=== PATIENT | male | born 2000 | race Caucasian/White ===

== ENCOUNTER → 2021-09-13 14:37 | Outpatient (BNVA) | payer OTHER, SELFPAY | PROVIDERS: PCP Nurse Practitioner; Visit Provider Nurse Practitioner | DX: S99.911A Unspecified injury of right ankle, initial encounter (principal); X58.XXXA Exposure to other specified factors, initial encounter; R60.0 Localized edema | CPT/HCPCS: 73610 ==

== ENCOUNTER 2024-04-29 14:17 | Emergency (ER) | payer OTHER, SELFPAY ==
[2024-04-29 14:22] VITALS: BP 163/107; PULSE 76; RESP 18; TEMP 36.4; O2SAT 96; BMI 42.4
--- NOTE | 2024-04-29 14:34 | ED_ITS ---
HPI - Abdominal Pain 2 General: Chief Complaint: Abdominal Pain Stated Complaint: abdominal pain, back pain, vomitting Time Seen by Provider: 04/29/24 14:18 Source: patient Mode of arrival: ambulatory Limitations: no limitations History of Present Illness: Patient is a 23-year-old male presents to ED today with complaint of upper abdominal pain. Patient states over the past several days his upper abdomen has felt sore and described it as a hunger pain . He states yesterday evening around 8 PM it began feeling significantly uncomfortable and radiating to his back. He states pain was worsened with eating yesterday evening and eating again this morning. Starting yesterday evening he has had some nonbloody/nonbilious emesis. He has not noted any changes in his bowel movements or passage of flatulence. He has no urinary complaints. No fevers, chills, body aches. MD elicited complaint: abdominal pain Onset (ago): day(s) Pain Consistency: intermittent Location: Epigastric and LUQ Severity: moderate Radiation: back Exacerbating factors: eating Relieving factors: nothing Associated Symptoms: Reports nausea and vomiting; Denies change in bowel habits, chills, constipation, diarrhea, dysuria, fever(s), hematochezia and melena Related Data Previous Rx's Medication Instructions Recorded diphenhydramine HCl 2 % topical 1 applic topical TID #103 mL 05/13/20 gel (Benadryl) epinephrine 0.3 mg/0.3 mL 0.3 mg (0.3 mL) IM Q10M PRN 05/13/20 injection, auto-injector (EpiPen anaphylaxis #2 ea 2-Jeffrey) loratadine 10 mg tablet 10 mg PO .BID 30 days #60 tabs 05/13/20 ondansetron HCl 4 mg tablet 4 mg PO Q8H #30 tabs 04/29/24 Allergies Allergy/AdvReac Type Severity Reaction Status Date / Time No Known Allergies Allergy Unverified 09/13/21 14:27 Review of Systems 2 Const: Denies: fever(s), chills, body aches, fatigue or malaise Card: Denies: chest pain Resp: Denies: dyspnea GI: Reports: abdominal pain, nausea and vomiting; Denies: diarrhea, constipation, change in bowel habits, hematochezia or melena : Denies: flank pain, difficulty urinating, dysuria, urinary frequency, urinary urgency or urinary hesitancy Musc: Reports: back pain; Denies: neck pain, extremity pain, extremity swelling, joint pain or joint swelling Skin/Breast: Denies: rash Neuro: Denies: headache(s), numbness in extremities, weakness in extremities, sensory changes or dizziness PFSH ED 2 PFSH: Medical History Allergy to food Social History Smoking and tobacco/nicotine status: current every day tobacco/nicotine user Physical Exam 2 Const: COMMON NORMALS: no acute distress, patient oriented x3, no limitations, alert and well nourished GENERAL APPEARANCE: cooperative NUTRITIONAL APPEARANCE: obese morbidly obese (BMI 42.4) ORIENTATION/CONSCIOUSNESS: Yes awake, Yes oriented to person, Yes oriented to place and Yes oriented to time Eye: COMMON NORMALS: no scleral icterus Chest: COMMONS NORMALS: normal inspection of the chest and normal palpation of entire chest wall Resp: COMMON NORMALS: normal respiratory effort and clear to auscultation bilaterally AUSCULTATION: clear to auscultation bilaterally Cardio: COMMON NORMALS: regular rate and regular rhythm RATE: regular rate RHYTHM: regular rhythm GI: COMMON NORMALS: Normal to inspection, nondistended, normoactive bowel sounds present, Soft to palpation, No hepatosplenomegaly present and no masses INSPECTION: Yes normal to inspection AUSCULTATION: Yes normoactive bowel sounds PALPATION: Yes Soft to palpation, Yes Tenderness to palpation present (GI) (epigastric/LUQ), No Guarding due to palpation present (GI), No Rigid due to palpation and Yes No hepatosplenomegaly present : COMMON NORMALS: Yes no CVA tenderness BLADDER/KIDNEY EXAM: Yes no CVA tenderness Back/Pelvis: COMMON NORMALS: no CVA tenderness and thoracic and lumbar spine normal to inspection Extremity: GENERAL: Yes normal exam except as noted Neuro: LAURA COMA SCALE: document GCS findings Laura coma scale eye opening: Spontaneous [place] coma scale verbal response: Orientated Laura coma scale motor response: Obey commands [place] coma scale total score: 15 COMMON NORMALS: patient oriented x3, moves all extremities, no focal motor deficits and no sensory deficits noted SENSORIUM/ORIENTATION: Yes alert, Yes oriented to person, Yes oriented to place and Yes oriented to time Skin: COMMON NORMALS: no rashes or lesions noted GENERAL SKIN EXAM: no rashes or lesions noted Course 2 Vital Signs: Vital signs: Vital Signs Temperature 97.6 F 04/29/24 14:22 Pulse Rate 75 04/29/24 17:30 Respiratory Rate 18 04/29/24 14:22 Blood Pressure 149/96 04/29/24 17:30 Pulse Oximetry 95 04/29/24 17:30 Oxygen Delivery Me thod Room Air 04/29/24 16:53 MDM - Abdominal Pain Medical Decision Making Patient is a 23-year-old male here for upper abdominal pain. He appears in no acute distress. His vital signs are stable. Blood work overall is unremarkable. CT scan showing possibly enteritis. Patient will be treated conservatively. Return ED precautions given. Will have him follow-up with primary care later this week if symptoms persist. Lab Data 04/29/24 14:54 04/29/24 14:54 Labs/Radiology: Radiology Impressions Abdomen/Pelvis CT 04/29/24 15:48 IMPRESSION: 1. Mildly prominent small bowel loops in the left upper quadrant with air-fluid levels, possibly representing enteritis. No evidence of bowel obstruction. 2. Mural prominence along the transverse colon is likely accentuated by underdistention. No pericolonic fat stranding to suggest inflammation. 3. Trace free pelvic fluid. 4. Ongoing mild splenomegaly. Laboratory Results WBC 11.12 10^3/uL (3.29-11.43) 04/29/24 14:54 RBC 5.60 10^6/uL (3.85-5.65) 04/29/24 14:54 Hgb 17.20 g/dL (11.27-16.99) H 04/29/24 14:54 Hct 49.2 % (37-53) 04/29/24 14:54 MCV 87.9 fl (82-101) 04/29/24 14:54 MCH 30.7 pg (27-33) 04/29/24 14:54 MCHC 35.0 g/dL (30-55) 04/29/24 14:54 RDW 12.1 % (12.1-15.1) 04/29/24 14:54 Plt Count 228 10^3/cmm (157-399) 04/29/24 14:54 MPV 10.8 fL (7.4-10.4) H 04/29/24 14:54 Neut % (Auto) 74.5 % 04/29/24 14:54 Lymph % (Auto) 14.9 % 04/29/24 14:54 Saunders % (Auto) 6.9 % 04/29/24 14:54 Eos % (Auto) 3.1 % 04/29/24 14:54 Baso % (Auto) 0.2 % 04/29/24 14:54 Neut # (Auto) 8.29 10^3/uL (1.8-7.7) H 04/29/24 14:54 Lymph # (Auto) 1.7 10^3/uL (0.8-4.8) 04/29/24 14:54 Saunders # (Auto) 0.8 10^3/uL (0.2-0.9) 04/29/24 14:54 Eos # (Auto) 0.3 10^3/uL (0.0-0.8) 04/29/24 14:54 Baso # (Auto) 0.0 10^3/uL (0.0-0.1) 04/29/24 14:54 Nucleated RBC % (auto) 0 % 04/29/24 14:54 Nucleated RBCs # 0.0 /100WBC 04/29/24 14:54 Sodium 141 mmol/L (136-145) 04/29/24 14:54 Potassium 4.0 mmol/L (3.5-5.1) 04/29/24 14:54 Chloride 105 mmol/L (98-107) 04/29/24 14:54 Carbon Dioxide 25 mmol/L (22-29) 04/29/24 14:54 Anion Gap 15.0 (5-19) 04/29/24 14:54 BUN 10 mg/dL (6-20) 04/29/24 14:54 Creatinine 0.6 mg/dL (0.7-1.2) L 04/29/24 14:54 GFR Calculation 168.5 mL/min (90-130) H 04/29/24 14:54 Glucose 98 mg/dL (65-115) 04/29/24 14:54 Calculated Osmolality 291 mOsm/kg (285-295) 04/29/24 14:54 Calcium 9.2 mg/dL (8.5-10.5) 04/29/24 14:54 Total Bilirubin 0.6 mg/dL (0.15-1.2) 04/29/24 14:54 AST 17 U/L (0-40) 04/29/24 14:54 ALT 43 U/L (0-41) H 04/29/24 14:54 Alkaline Phosphatase 60 U/L (40-130) 04/29/24 14:54 Total Protein 7.3 g/dL (6.6-8.7) 04/29/24 14:54 Albumin 4.4 g/dL (3.5-5.2) 04/29/24 14:54 Globulin 2.9 g/dL (1.3-4.6) 04/29/24 14:54 Lipase 25 U/L (13-60) 04/29/24 14:54 Urine Color Yellow (Yellow) 04/29/24 15:10 Urine Appearance Slightly cloudy (CLEAR) 04/29/24 15:10 Urine pH 8 (5-7) A 04/29/24 15:10 Ur Specific [place] 1.010 (1.005-1.030) 04/29/24 15:10 Urine Protein Neg (Negative) 04/29/24 15:10 Urine Glucose (UA) Norm (Normal) 04/29/24 15:10 Urine Ketones Negative (Negative) 04/29/24 15:10 Urine Blood Neg (Negative) 04/29/24 15:10 Urine Nitrate Negative (Negative) 04/29/24 15:10 Urine Bilirubin Neg (Negative) 04/29/24 15:10 Urine Urobilinogen Norm mg/dL (Negative) 04/29/24 15:10 Ur Leukocyte Esterase Trace (Negative) H 04/29/24 15:10 Urine RBC 0-4 /hpf (0-2) H 04/29/24 15:10 Urine WBC 15-25 /hpf (0-5) H 04/29/24 15:10 Ur Squamous Epith Cells 10-15 /hpf (0-5) H 04/29/24 15:10 Amorphous Sediment Not Reportable 04/29/24 15:10 Urine Bacteria Trace /hpf (NONE) 04/29/24 15:10 Urine Mucus 3+ /hpf 04/29/24 15:10 All radiology interpretation(s) finalized by discharge Discharge Plan Discharge Patient Disposition: Home Clinical Impression: Enteritis Condition: Stable Prescriptions: New ondansetron HCl 4 mg tablet 4 mg PO Q8H Qty: 30 0RF No Action epinephrine [EpiPen 2-Jeffrey] 0.3 mg/0.3 mL auto-injector 0.3 mg IM Q10M PRN (Reason: anaphylaxis) Qty: 2 2RF Rx Instructions: for 2 doses loratadine 10 mg tablet 10 mg PO .BID 30 Days Qty: 60 2RF Benadryl 2 % gel 1 applic TOPICAL TID Qty: 103 2RF Discharge Orders: Discharge ED (Routine); Ordered 04/29/24 Ordered By: Any Herrera Referrals: Wendy Marti FNP [Primary Care Provider] - Gus Tabor MD [Family Provider] - Patient Instructions: Enteritis (ED) Activity Restrictions/Additional Instructions: As we discussed, I would like you to do a bland liquid diet and slowly advance to soft foods and then from there as tolerated. Please follow-up with primary care return to the emergency department for worsening abdominal pain, better episodes of vomiting, blood in your vomit or stool, fevers, generally feeling worse or unwell, or any other concerns you may have. Coding Level of Care Code ED [employer] Grip for Jordan Montalvo
[2024-04-29 15:02] LABS: Basophils % 0.2 %; Eosinophils # 0.3 10^3/uL (0.0-0.8); Eosinophils % 3.1 %; Hematocrit 49.2 % (37-53); Lymphocytes # 1.7 10^3/uL (0.8-4.8); Lymphocytes % 14.9 %; Mean Corpuscular Hemoglobin 30.7 pg (27-33); Mean Corpuscular Volume 87.9 fl (82-101); Mean Platelet Volume 10.8 fL (7.4-10.4); Monocytes # 0.8 10^3/uL (0.2-0.9); Monocytes % 6.9 %; Neutrophils # 8.29 10^3/uL (1.8-7.7); Neutrophils % 74.5 %; Nucleated Red Blood Cells % 0 %; Platelet Count 228 10^3/cmm (157-399); Red Cell Distribution Width 12.1 % (12.1-15.1); White Blood Count 11.12 10^3/uL (3.29-11.43)
[2024-04-29] MEDS: lidocaine 2% viscous 15 ML, aluminum-mag hydrox-simethicon 30 ML, sucralfate oral liq 1 GM PO (15:05)
[2024-04-29 15:06] VITALS: BP 148/69; O2SAT 98
[2024-04-29 15:19] LABS: Alanine Aminotransferase 43 U/L (0-41); Albumin Level 4.4 g/dL (3.5-5.2); Alkaline Phosphatase 60 U/L (40-130); Aspartate Amino Transferase 17 U/L (0-40); Blood Urea Nitrogen 10 mg/dL (6-20); Calcium 9.2 mg/dL (8.5-10.5); Carbon Dioxide 25 mmol/L (22-29); Chloride 105 mmol/L (98-107); Creatinine Clr Calc Pharmacy 274.0681; Globulin 2.9 g/dL (1.3-4.6); Glomerular Filtration Rate 168.5 mL/min (90-130); Glucose 98 mg/dL (65-115); Lipase 25 U/L (13-60); Osmolality Calculated 291 mOsm/kg (285-295); Sodium 141 mmol/L (136-145); Total Bilirubin 0.6 mg/dL (0.15-1.2); Total Protein 7.3 g/dL (6.6-8.7)
[2024-04-29 15:33] LABS: Add Urine Microscopic? YES; Bilirubin Urine Neg (Negative); Blood Urine Neg (Negative); Glucose Urine UA Norm (Normal); Ketones Urine Negative (Negative); Leukocyte Esterase Urine Trace (Negative); Nitrate Urine Negative (Negative); Protein Urine Neg (Negative); RBC Urine 0-4 /hpf (0-2); Urine Appearance Slightly Cloudy (CLEAR); Urine Color Yellow (Yellow); Urobilinogen Urine Norm (Negative); pH Urine 8 (5-7)
[2024-04-29 15:34] LABS: Bacteria Urine TRACE /hpf; Mucus Urine 3+ /hpf; WBC Urine 15-25 /hpf (0-5)
--- NOTE | 2024-04-29 15:38 | PC.NURSE ---
oral challenge, sprite and crackers given.
--- NOTE | 2024-04-29 15:48 | CTR_ITS ---
PROCEDURE INFORMATION: Exam: CT Abdomen And Pelvis With Contrast Exam date and time: 04/29/2024 4:26 PM Age: 23 years old Clinical indication: Nausea and vomiting; Additional info: Upper abdominal pain TECHNIQUE: Imaging protocol: Computed tomography of the abdomen and pelvis with contrast. Radiation optimization: All CT scans at this facility use at least one of these dose optimization techniques: automated exposure control; mA and/or kV adjustment per patient size (includes targeted exams where dose is matched to clinical indication); or iterative reconstruction. Contrast material: OMNI 350; Contrast volume: 100 ml; Contrast route: INTRAVENOUS (IV); COMPARISON: CT abdomen pelvis w con* [id number] 09/16/2017 12:13 AM RADIATION DOSE METRICS: Total DLP (mGy-cm): 1341 FINDINGS: Liver: Normal. No mass. Gallbladder and biliary ducts: Normal. No calcified stones. No ductal dilation. Pancreas: Normal. No ductal dilation. Spleen: Spleen is mildly enlarged. Adrenal glands: Normal. No mass. Kidneys and ureters: Normal. No hydronephrosis. Stomach and bowel: Mild mural thickening of the transverse colon is likely exaggerated by underdistention. No pericolonic fat stranding. A few mildly prominent small bowel loops are seen in the left upper quadrant with air-fluid levels. No evidence of bowel obstruction. Appendix: No evidence of appendicitis. Intraperitoneal space: Trace free fluid in the pelvis. Vasculature: Unremarkable. No abdominal aortic aneurysm. Lymph nodes: Unremarkable. No enlarged lymph nodes. Urinary bladder: Unremarkable as visualized. Reproductive: Unremarkable as visualized. Bones/joints: Unremarkable. No acute fracture. Soft tissues: Unremarkable. CT/CT abdomen pelvis w con* [id number] IMPRESSION: 1. Mildly prominent small bowel loops in the left upper quadrant with air-fluid levels, possibly representing enteritis. No evidence of bowel obstruction. 2. Mural prominence along the transverse colon is likely accentuated by underdistention. No pericolonic fat stranding to suggest inflammation. 3. Trace free pelvic fluid. 4. Ongoing mild splenomegaly.
[2024-04-29 16:00] VITALS: BP 147/88; PULSE 80; O2SAT 96
[2024-04-29] MEDS: iohexol 350 mg/mL 500 mL Btl (per mL) IV (16:30)
[2024-04-29 16:53] VITALS: BP 157/89; PULSE 84; O2SAT 96
[2024-04-29 17:30] VITALS: BP 149/96; PULSE 75; O2SAT 95
== END 2024-04-29 17:34 | disposition home or self-care (01) ==
PROVIDERS: Emergency Provider Physician Assistant; PCP Nurse Practitioner
DX: K52.9 Noninfective gastroenteritis and colitis, unspecified (principal); Z72.0 Tobacco use
CPT/HCPCS: 36415; 74177; 80053; 81001; 83690; 85025; 99285